=== PATIENT | male | born 1980 ===

== ENCOUNTER 2025-05-03 11:50 | Outpatient (AMB) | payer OTHER, SELFPAY ==
--- NOTE | 2025-05-03 11:50 | AM.OFFWIN_ITS ---
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 He gives a history of high blood pressure (174/90 three months ago), however, his blood presure is within the normal range now. Allergies No Known Allergies Allergy (Verified 05/03/25 12:06) Medication List - Last Reconciled 05/03/25 by Lashaun Concepcion MD amlodipine 5 mg PO DAILY Do you need a note to return to daycare/school/sports/work: No HPI HPI Comments History of Present Illness Details History of Present Illness The patient is a 44-year-old male presenting with a need for hypertension medication refill. Essential Hypertension: - The patient has been on Amlodipine 5 m g since October 2023, following his cholecystectomy surgery. - He does not have a PCP and reports justino t he has been getting his refills from the ER or urgent care centers. - He is currently managing his hypertens ion with this medication. - Patient has a blood pressure cuff at [facility], however has not been checking his blood pressures. - Denies any current headaches, dizzines s, chest pain, shortness of breath, vision changes. - Reports he has occasionally had chest pain in the past few times a week for > 1 year, which he thinks may be related to anxiety. No current chest pain Review of Systems Constitutional: Negative for fevers Eyes: Negative for visual disturbance Respiratory: Negative for shortness of breath Cardiac: Negative for chest pain. Neurological: Negative for dizziness, headaches Physical Exam General Appearance: Normal appearance, well developed. No acute distress Head: Normocephalic, atraumatic Cardiac: Regular rate and rhythm. No murmurs auscultated Pulmonary: No respiratory distress. Speaking in full sentences Musculoskeletal: Moving all extremities spontaneously and against gravity Mental Status: Alert and Oriented x 3 Psychiatric: Normal mood. Normal affect. R Physical Exam Vital Signs: Last Vital Signs Temp 98.1 F 05/03/25 11:57 Pulse 70 05/03/25 11:57 BP 130/84 05/03/25 11:57 Pulse Ox 97 05/03/25 11:57 Oxygen Delivery Method Room Air 05/03/25 11:57 BMI result Body Mass Index 31.2 Assessment & Plan Assessment & Plan (1) Essential hypertension: Code(s): I10 - Essential (primary) hypertension (2) Does not have primary care provider: Code(s): Z75.8 - Other problems related to medical facilities and other health care Plan - Patient presents for refill of blood pressure medication. Currently asymptomatic - Refill of Amlodipine 5 mg was provided for a 30-day supply. - Arranged a visit with PCP, Dr. Rowe to establish care and to ensure ongoing management and monitoring for blood pressures. Medications: New amlodipine 5 mg PO DAILY 30 tabs 0RF Coding Level of Care Code New Pt Level 3 (27867) Diagnoses Essential hypertension I10 Does not have primary care provider Z75.8
[2025-05-03 11:57] VITALS: BP 130/84; PULSE 70; TEMP 36.7; O2SAT 97; BMI 31.2
--- OUTSIDE RECORDS SUMMARY | 2025-05-03 13:28 | XMS_ITS ---
Author Name [facility] Organization Unknown Care Team Organization Name Specialty Phone Email Start Date End Da te [facility] 05/11/20222023
== END 2025-05-03 12:51 | disposition home or self-care (01) ==
PROVIDERS: Visit Provider Family Medicine
DX: I10 Essential (primary) hypertension (principal); Z75.8 Other problems related to medical facilities and other health care

== ENCOUNTER → 2025-05-03 11:50 | Outpatient (BNVA) | payer OTHER, SELFPAY | PROVIDERS: Visit Provider Family Medicine | DX: I10 Essential (primary) hypertension (principal); Z75.8 Other problems related to medical facilities and other health care; Z79.899 Other long term (current) drug therapy | CPT/HCPCS: 99202 ==

== ENCOUNTER 2025-06-24 08:53 | Outpatient (REF) | payer OTHER, SELFPAY ==
[2025-06-24 13:55] LABS: MANUAL DIFF FLAG NO
[2025-06-24 14:14] LABS: Appearance Urine Clear; Glucose Urine UA Negative (Negative); PH 8.5 (5.0-9.0); Specific Gravity - Urine 1.015 (1.005-1.025)
[2025-06-24 14:16] LABS: Hematocrit 41.9 % (42.0-52.0); Hemoglobin 13.8 g/dl (14.0-18.0); Imm Gran Abs Auto 0.01 X10*3/uL (0.00-0.03); Imm Gran Pct Auto 0.2 % (0.0-0.4); Lymphocytes Absolute Auto 2.5 X10*3/uL (1.2-4.9); Mean Corpuscular HGB Conc 32.9 g/dl (31.0-36.0); Mean Corpuscular Hemoglobin 30.3 pg (27.0-33.0); Mean Corpuscular Volume 91.9 fL (80.0-98.0); NRBC Abs Auto 0.000 X10*3/uL (0.0-0.012); NRBC Pct Auto 0.0 /100WBC (0.0-0.2); Platelet Count 264 X10*3/uL (160-400); Red Blood Count 4.56 X10*6/uL (4.60-5.80); White Blood Count 6.1 X10*3/uL (4.8-10.8)
[2025-06-24 15:22] LABS: Folate 5.6 ng/mL (> or = 4.0); Vitamin B12 240 pg/mL (200-900)
[2025-06-24 16:29] LABS: Alanine Aminotransferase 16 U/L (0-40); Albumin Level 4.9 g/dL (3.5-5.0); Alkaline Phosphatase 80 U/L (39-117); Anion Gap 12 (12-20); Aspartate Amino Transferase 26 U/L (5-37); Blood Urea Nitrogen 14 mg/dL (9-16); Calcium 10.0 mg/dL (8.4-10.2); Carbon Dioxide 28 mmol/L (22-29); Chloride 108 mmol/L (96-108); Cholesterol 190 mg/dL (<200); Estimated Glomerular Filt Rate > 60; HDL Cholesterol 38 mg/dL (>40); Magnesium 2.3 mg/dL (1.6-2.6); Potassium 4.5 mmol/L (3.3-5.1); Sodium 143 mmol/L (135-145); Total Protein 7.6 g/dL (6.5-8.0); Triglycerides 62 mg/dL (<150)
[2025-06-25 03:44] LABS: Syphilis Screen Nonreactive (Nonreactive)
[2025-06-25 04:15] LABS: HBS Num1 1.90 mIU/mL (0-7.99); HBsAGNum1 0.46 S/CO (0.00-0.99); HIV Num 1 0.07 S/CO (0.00-0.99); Hepatitis B Surface Antigen Negative (Negative); ~HepC Num1 0.13 S/CO (0.00-0.79); ~Hepatitis B Surface Antibody NONREACTIVE (Nonreactive); ~Hepatitis C Antibody Nonreactive (Nonreactive)
[2025-06-29 06:52] LABS: Vitamin D 25-OH, D2 <4 ng/mL; Vitamin D 25-OH, D3 17 ng/mL; Vitamin D 25-OH, Total 17 ng/mL (30-100)
== END 2025-06-24 08:54 | disposition home or self-care (01) ==
LOC: HO.HKASLDS 08:53
PROVIDERS: PCP Student in an Organized Health Care Education/Training Program; Visit Provider Student in an Organized Health Care Education/Training Program
DX: I10 Essential (primary) hypertension (principal); Z13.9 Encounter for screening, unspecified; S69.92XA Unspecified injury of left wrist, hand and finger(s), initial encounter; R19.8 Other specified symptoms and signs involving the digestive system and abdomen; E66.811 Obesity, class 1; E66.1 Drug-induced obesity; H61.21 Impacted cerumen, right ear; R03.0 Elevated blood-pressure reading, without diagnosis of hypertension
CPT/HCPCS: 36415; 80053; 80061; 81003; 82043; 82306; 82570; 82607; 82746; 83036; 83735; 84443; 85025; 86706; 86780; 86803; 87340; 87389

== ENCOUNTER 2025-06-24 08:53 | Outpatient (AMB) | payer OTHER, SELFPAY ==
[2025-06-24 08:55] VITALS: BP 143/86; PULSE 74; RESP 16; TEMP 36.4; O2SAT 97; BMI 32.2
--- NOTE | 2025-06-24 08:55 | A.OFFPC_ITS ---
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 Accompanied by: Self / Same As Patient Allergies No Known Allergies Allergy (Verified 06/24/25 08:56) Medication List - Last Reconciled 06/24/25 by Jamie Rowe MD amlodipine 5 mg PO DAILY Tobacco use date assessed: 06/24/25 Dental Screening Dental Screen Date: 06/24/25 Did you have a dental visit in the last 12 months?: Yes Did you have a dental problem in the last 6 months where you did not have access to dental care?: Yes Was dental information given to patient?: Patient has dentist HPI HPI Comments History of Present Illness Details History of Present Illness The patient is a 44 year old male presenting for management of high blood pressure and a general health evaluation. Hypertension: The patient was diagnosed with high blood pressure during a hospitalization for major abdominal surgery related to pancreatitis and gallbladder issues. He currently takes amlodipine 5 mg. He owns a blood pressure cuff but has not been monitoring his readings at home lately. He reports feeling ridiculously hot every day, which may be a symptom of uncontrolled blood pressure. Wrist Injury: The patient reports injuring his wrist at the end of March while performing bicep curls. He experiences pain with regular curls but can perform hammer curls and cable pull-downs without issue. He also reports associated tingling and numbness on the back of his hand. The issue has persisted as he has continued to work out. Gastrointestinal Issues: The patient has a history of colitis and diverticulitis, for which he was hospitalized and treated with IV antibiotics. During that hospitalization, he was seen by a corporate tutor who advised diet modification. He currently experiences symptoms of diarrhea, heartburn, and occasional stomach cramps. He notes a possible association between his symptoms and an intake of dairy, particularly in Swedish food. Surgical History: - Major abdominal surgery for pancreatit is, pseudocyst, and gallstones. - Cholecystectomy Medications: - Amlodipine 5 mg for high blood pressur e. 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 - He previously worked as a mortuary wor ker for 17 years. - Substance Use: He reports a history of smoking cigarettes from age 14 to 26 but has since quit. - He currently smokes marijuana, which h e started around the time he quit cigarettes. - He denies any other illicit drug use. - Exercise: The patient works out daily. Family History: - Mother: History of high blood pressure . - Father: History of heart problems and stomach problems. Diagnostic Results: - Vitals: Blood pressure measured in-off ice was 143/86 mmHg. Past Medical History - Hypertension, diagnosed during a previ ous hospitalization. - Clinical depression - Generalized anxiety - History of pancreatitis with pseudocys t, complicated and requiring major surgery. - History of cholelithiasis - History of colitis, requiring hospital ization and IV antibiotics. - History of diverticulitis, requiring h ospitalization and IV antibiotics. - Possible hyperthyroidism mentioned dur ing a past hospitalization. Health Maintenance - The patient is a former smoker and was advised that he will require an abdominal ultrasound to screen for an aortic aneurysm later in life. - This visit establishes primary care, a s he has not had a primary care doctor for a long time. - Comprehensive laboratory screening ord ered, including a CBC, CMP, magnesium, hemoglobin A1c, lipid panel, vitamin D, B12, folate, urinalysis, and testing for hepatitis B, hepatitis C, HIV, and syphilis. - A thyroid function test was also order ed due to a history of possible hyperthyroidism. [facility] Family History (Updated 06/24/25 @ 09:05 by Stephan Vasques MA) Father Diverticulitis Mother High blood pressure Diverticulitis High cholesterol Chronic migraine with aura Heart problem Social History Housing: House Patient Tobacco Use Status: Never used Tobacco service: No Current occupational status: employed Current occupation: mobile security [employer] Cognitive needs: No Hearing needs: No Vision needs: No Questionnaire PHQ-9 Over the last 2 weeks, how often have you been bothered by any of the following problems? 1. Little interest or pleasure in doing things: not at all 2. Feeling down, depressed, or hopeless: several days 3. Trouble falling or staying asleep, or sleeping too much: not at all 4. Feeling tired or having little energy: several days 5. Poor appetite or overeating: several days 6. Feeling bad about yourself - or that you are a failure or have let yourself or your family down: not at all 7. Trouble concentrating on things, such as reading the newspaper or watching television: not at all 8. Moving or speaking so slowly that other people could have noticed. Or the opposite - being so fidgety or restless that you have been moving around a lot more than usual: not at all 9. Thoughts that you would be better off or of hurting yourself in some way: not at all Total score: 3 Depression Screening Interpretation: Negative Depression Screening Done: Yes Source: Developed by Drs. Gerson Partida, Merari Carrasco, Terrance Conrad and colleagues, with an educational kristie from [employer]. Thrive Questionnaire Date Thrive assessed: 06/24/25 I am a: Patient What is your living situation today?: I have a steady place to live Within the past 12 months, did the food you bought not last and you didn't have the money to get more?: Often true Within the past 12 months, did you worry whether your food would run out before you got money to buy more?: Often true Do you have trouble paying for medicines?: Yes Do you have trouble getting transportation to medical appointments?: No Do you have trouble paying your heating and electricity bill?: Yes Do you have trouble taking care of your child, family member or friend?: No Do you have trouble with day-to-day activities such as bathing, preparing meals, shopping, managing finances, etc.?: No Are you currently unemployed and looking for a job?: No Are you interested in more education?: No Please select the resources that you would like help with: Paying for medicine Currently or been in a relationship where the following occur: I choose not to answer THRIVE Score: 3 AUDIT C Alcohol Use Questionnaire (AUDIT-C) 1. How often do you have a drink containing alcohol?: Never 2. How many drinks containing alcohol do you have on a typical day when you are drinking?: 1 or 2 3. How often do you have six or more drinks on one occasion?: Never Total Score: 0 MARIANNA-7 AMB Questionnaire MARIANNA-7 Date MARIANNA - 7 assessed: 06/24/25 Feeling nervous, anxious, or on edge: 3 = Nearly every day Not being able to stop or control worryin = Nearly every day Worrying too much about different things: 3 = Nearly every day Trouble relaxin = Nearly every day Being so restless that it is hard to sit still: 1 = Several days Becoming easily annoyed or irritable: 3 = Nearly every day Feeling afraid as if something awful might happen: 3 = Nearly every day Total MARIANNA-7 score (0-4 normal; 5-9 mild; 10-14 moderate; 15-21 severe): 19 Source: Developed by Drs. Gerson Partida, Merari Carrasco, Terrance Conrad and colleagues, with an educational kristie from [employer]. Review of Systems Narrative Review of Systems - General: Reports feeling excessively hot on a daily basis. - Reports sleeping well. - Cardiovascular: Denies swelling of the legs. - Gastrointestinal: Reports diarrhea, heartburn, and occasional stomach cramps, which are dependent on his diet. - Musculoskeletal: Reports wrist pain since March that is exacerbated by certain weightlifting movements. - Neurological: Reports tingling and numbness on the back of his hand. - He also notes his feet get numb in cold weather. - Psychiatric: Endorses a history of clinical depression and generalized anxiety. 10-point ROS reviewed and negative except as noted in HPI Physical exam (Primary Care) Vital Signs: Last Vital Signs Temp 97.6 F 06/24/25 08:55 Pulse 74 06/24/25 08:55 Resp 16 06/24/25 08:55 BP 143/86 H 06/24/25 08:55 Pulse Ox 97 06/24/25 08:55 Oxygen Delivery Method Room Air 06/24/25 08:55 BMI result Body Mass Index 32.2 Tobacco/Smoking Status: Tobacco use Status Tobacco use date assessed 06/24/25 06/24/25 08:59 Patient Tobacco Use Status Never used Tobacco 06/24/25 08:59 PHQ-9: PHQ-9 Score PHQ-9: Total score 3 06/24/25 08:59 Depression Screening Interpretation: Negative Thrive Assessment: Date of Thrive Assessment Date Thrive assessed 06/24/25 06/24/25 08:59 Currently or been in a relationship where the following occur: I choose not to answer Coding Level of Care Code New Pt Level 4 (51667) Add On Problem Visit Only Diagnoses Hypertension I10 Injury of wrist, left S69.92XA Gastrointestinal complaints R19.8 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 E66.811; E66.1 Impacted cerumen of right ear H61.21 Elevated blood pressure reading R03.0 Assessment & Plan Assessment & Plan (1) Hypertension: Code(s): I10 - Essential (primary) hypertension Category: Medical (2) Injury of wrist, left: Code(s): S69.92XA - Unspecified injury of left wrist, hand and finger(s), initial encounter Category: Medical (3) Gastrointestinal complaints: Code(s): R19.8 - Other specified symptoms and signs involving the digestive system and abdomen Category: Medical (4) 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 Patient was informed and verbally consented to the use of an ambient scribe for clinic note documentation during this visit. Plan 1. Hypertension - The current dose of amlodipine 5 mg is low and may not be providing adequate blood pressure control, as evidenced by today's reading of 143/86 mmHg. - Comprehensive lab work, including a complete blood count, comprehensive metabolic panel, magnesium, and lipid panel, has been ordered to assess for underlying causes and comorbidities. - The patient was instructed to maintain a home blood pressure log, taking three readings in the morning and evening and recording the best measurement for each session. - A follow-up appointment is scheduled in two weeks to review the blood pressure log and lab results to determine if medication adjustments are necessary. 2. Wrist Pain With Paresthesia - The patient's symptoms of tingling and numbness suggest possible nerve impingement secondary to inflammation from a muscle injury. - Recommended conservative management including rest, ice, and inflammation control with ibuprofen. - Advised the patient to use a wrist splint for roughly two weeks to a month to immobilize the joint and allow it to heal, particularly to serve as a reminder during workouts. 3. Gastrointestinal Distress - Symptoms of diarrhea, heartburn, and cramps appear to be diet-related, with a suspicion of lactose intolerance given the association with dairy consumption. - The patient was advised to keep a food journal to identify specific trigger foods and patterns. - A trial of an [id number] lactase enzyme supplement before consuming dair y was suggested as a potential management strategy. 4. Cerumen Impaction, Right Ear - The physical exam revealed a cerumen impaction in the right ear, preventing visualization of the tympanic membrane. - The patient was instructed to use cerumenolytic drops, which he has at home, for five days prior to his follow-up visit to soften the wax. - Plan to perform an ear cleaning at the next visit. 5. Health Screening And Maintenance - Comprehensive baseline labs were ordered for this new patient, including a CBC, CMP, HbA1c, lipids, vitamins D and B12, folate, and STI panel. - A thyroid function test was added to investigate a patient-reported history of possible hyperthyroidism. - The finding of koilonychia (nail spooning) will be evaluated with the CBC to assess for mineral deficiencies, such as iron deficiency anemia. - A follow-up visit is scheduled in two weeks to review all results and establish an ongoing care plan. Discussion Notes I had a detailed discussion with the patient, who is establishing care today, primarily regarding his hypertension. I explained that his current blood pressure of 143/86 mmHg is elevated and that the amlodipine 5mg may be an insufficient dose. I outlined the plan to order a comprehensive set of labs to get a baseline of his health and instructed him on how to properly maintain a home blood pressure log, which will guide future medication decisions. We also discussed his chronic wrist pain, which I suspect is due to nerve impingement from inflammation. I recommended rest, ice, ibuprofen, and the use of a wrist splint to allow for healing. Regarding his gastrointestinal symptoms, I advised him to keep a food diary to identify triggers, with a specific suggestion to trial a lactase enzyme for suspected lactose intolerance. I noted the cerumen impaction in his right ear and instructed him to use softening drops for five days before his next visit so I can clean it out. I also pointed out the spooning of his nails, explaining that it could be a sign of a mineral deficiency that we will investigate with the blood work. The patient agreed with the plan and a follow-up appointment was scheduled for two weeks to review all results. Patient Instructions - Please get the blood work we ordered done at the lab here today. - Check your blood pressure at home twice a day, in the morning and at night. - When you check it, be seated with your back supported, feet flat on the floor, and your arm at heart level. - Take three readings each time and write down the date and the best (lowest) numbers in a log. - For your wrist pain, you need to rest it. - Wear a wrist splint for the next 2-4 weeks to help it heal and to remind you not to use it, especially when you work out. - You can take ibuprofen for pain and swelling. - For your stomach issues, keep a journal of the foods you eat and how you feel afterward to find any patterns. - You can try taking a lactase pill (like Lactaid) before eating dairy to see if that helps. - Use earwax removal drops in your right ear for five days before your next appointment. - Please make a follow-up appointment to see me in two weeks to go over your results. Medical Decision Making The patient is a 44-year-old male establishing primary care, presenting with a chief complaint of managing his known hypertension. His in-office blood pressure of 143/86 mmHg indicates his hypertension is not well-controlled on his current regimen of amlodipine 5 mg, which is a low dose. The plan is to gather more data via a home blood pressure log and comprehensive lab work before making any medication adjustments to ensure a safe and effective treatment plan. His complaint of wrist pain since March, associated with paresthesias, is concerning for a peripheral nerve impingement likely secondary to inflammatory changes from his initial injury. A conservative approach with rest, splinting, and NSAIDs is warranted as the first line of treatment. His gastrointestinal symptoms, including diarrhea and heartburn, are likely related to diet, and the suspicion for lactose intolerance is high based on his history. A food diary is a low-risk initial diagnostic tool. Physical exam findings of koilonychia and the patient's report of possible hyperthyroidism from a prior hospitalization prompted additions to a comprehensive lab panel, including a CBC and TSH, to screen for anemia and thyroid dysfunction. The cerumen impaction in the right ear will be managed with cerumenolytic drops followed by irrigation at the next visit. A two-week follow- up is necessary to review all diagnostic data and formulate a long-term, comprehensive care plan for this new patient. Total Time Statement 30 min Total time spent caring for the patient today includes pre-visit chart review, documentation, review of laboratory and diagnostic imaging results, medication reconciliation, medically necessary evaluation, counseling on diagnoses, care coordination, ordering appropriate tests and medications, review of tests performed by other providers, reporting test results to the patient, and communication with other healthcare providers. Orders: Orders TSH reflex Free T4 Today Z13.9 - Encounter for screening, unspecified UA CC w/rflx Micro + Cult Today Z13.9 - Encounter for screening, unspecified Lipid Panel Today Z13.9 - Encounter for screening, unspecified Magnesium Today Z13.9 - Encounter for screening, unspecified Complete Blood Count Auto Diff Today Z13.9 - Encounter for screening, unspecified Hepatitis B Surface Antigen Today Z13.9 - Encounter for screening, unspecified Syphilis Screen Today Z13.9 - Encounter for screening, unspecified Comprehensive Met. Panel Today Z13.9 - Encounter for screening, unspecified Hepatitis C Antibody Today Z13.9 - Encounter for screening, unspecified HIV Ab/Ag Today Z13.9 - Encounter for screening, unspecified Vitamin B12 and Folate Today Z13.9 - Encounter for screening, unspecified Hemoglobin A1c Today Z13.9 - Encounter for screening, unspecified Hepatitis B Surface Antibody Today Z13.9 - Encounter for screening, unspecified Vitamin D 25-OH (D2 and D3) Today Z13.9 - Encounter for screening, unspecified Microalbumin, Random (w Creat) Today Z13.9 - Encounter for screening, unspecified
== END 2025-06-24 09:33 | disposition home or self-care (01) ==
LOC: HO.HMCFMS 08:54
PROVIDERS: Visit Provider Student in an Organized Health Care Education/Training Program
DX: I10 Essential (primary) hypertension (principal); S69.92XA Unspecified injury of left wrist, hand and finger(s), initial encounter; R19.8 Other specified symptoms and signs involving the digestive system and abdomen; E66.811 Obesity, class 1; E66.1 Drug-induced obesity; H61.21 Impacted cerumen, right ear; R03.0 Elevated blood-pressure reading, without diagnosis of hypertension